=== PATIENT | male | born 1970 | race Caucasian/White ===

== ENCOUNTER 2022-04-12 12:47 | Emergency (ER) | payer OTHER, SELFPAY ==
[~2022-04-12] VITALS: Ht 180.3 cm; Wt 81.2 kg
[~2022-04-12 12:47] MED LIST: FENT25DI33 TOP; NICO21PAT TD; PERCOCET PO
[2022-04-12 15:42] VITALS: BP 135/85
[2022-04-12] MEDS ORDERED: AMOX875T2 PO (15:49)
[2022-04-12 16:30] LABS: RSV AMPLIFICATION NEGATIVE (NEGATIVE)
== END 2022-04-12 16:54 | disposition home or self-care (01) ==
LOC: M ED 12:47
DX: J01.90 Acute sinusitis, unspecified (principal); J90 Pleural effusion, not elsewhere classified; F17.200 Nicotine dependence, unspecified, uncomplicated; Z88.1 Allergy status to other antibiotic agents

== ENCOUNTER → 2022-06-12 | Outpatient (CLI) | payer MEDICAID ==
[~2022-06-12] MED LIST changes: +AMOX875T2 PO
== END ==
LOC: M RAD 11:03
PROVIDERS: ATTEND Nurse Practitioner Family
DX: J90 Pleural effusion, not elsewhere classified (principal)

== ENCOUNTER → 2022-06-25 | Outpatient (CLI) | payer OTHER ==
[~2022-06-25] MED LIST changes: +ISOVUE-370 76% 100ML VIAL As Ordered ONE
== END ==
LOC: M RAD 10:41
PROVIDERS: ATTEND Nurse Practitioner Family
DX: J90 Pleural effusion, not elsewhere classified (principal)
CPT/HCPCS: 71260; Q9967

== ENCOUNTER 2022-06-27 18:13 | Emergency (ER) | payer OTHER ==
[~2022-06-27] VITALS: Ht 180.3 cm; Wt 82.6 kg
[~2022-06-27 18:13] MED LIST changes: -ISOVUE-370 76% 100ML VIAL As Ordered ONE
[2022-06-27] MEDS ORDERED: ASPIRIN 81 MG CHEW TABLET PO ONE (19:45)
[2022-06-27 19:59] LABS: BASO # 0.1 10^3/uL (0.0-0.2); BASO % 1.3 % (0.0-1.0); EOS # 0.5 10^3/uL (0.0-0.5); EOS % 5.3 % (0.0-3.0); HEMOGLOBIN 15.3 g/dl (13.5-17.5); LYMPH # 2.9 10^3/uL (1.5-5.0); LYMPH % 28.4 % (24.0-44.0); MEAN CORPUSCULAR HEMOGLOBIN 30.1 pg (27.0-33.0); MEAN CORPUSCULAR HGB CONC 32.6 g/dl (32.0-36.5); MEAN CORPUSCULAR VOLUME 92.5 fl (80.0-96.0); MONO # 1.1 10^3/uL (0.0-0.8); NEUTROPHILS # 5.5 10^3/uL (1.5-8.5); NEUTROPHILS % 53.6 % (36.0-66.0); PLATELET COUNT, AUTOMATED 216 10^3/uL (150-450); RED BLOOD COUNT 5.08 10^6/uL (4.30-6.10); WHITE BLOOD COUNT 10.3 10^3/uL (4.0-10.0)
[2022-06-27 20:47] LABS: CK-MB VALUE MASS < 1.0 NG/ML (<3.6); CPK CREATINE PHOSPHOKINASE 82 U/L (39-308); MB/CK RELATIVE INDEX 1.22 (< OR =4)
[2022-06-27 20:51] LABS: ALBUMIN 3.9 GM/DL (3.2-5.2); ALT/SGPT 24 U/L (12-78); BILIRUBIN,DIRECT 0.1 MG/DL (0.0-0.2); BILIRUBIN,TOTAL 0.4 MG/DL (0.2-1.0); BLOOD UREA NITROGEN 12 MG/DL (7-18); CARBON DIOXIDE LEVEL 30 MEQ/L (21-32); CHLORIDE LEVEL 102 MEQ/L (98-107); CREATININE FOR GFR 1.04 MG/DL (0.70-1.30); GLOMERULAR FILTRATION RATE > 60.0 (>56); GLUCOSE, FASTING 81 MG/DL (70-100); LIPASE 194 U/L (73-393); NT-PRO BNP 27 PG/ML (<125); SODIUM LEVEL 138 MEQ/L (136-145); TOTAL PROTEIN 7.4 GM/DL (6.4-8.2)
[2022-06-27 22:15] VITALS: BP 114/66
== END 2022-06-27 22:27 | disposition home or self-care (01) ==
LOC: M ED 18:13
DX: R07.9 Chest pain, unspecified (principal); S22.32XD Fracture of one rib, left side, subsequent encounter for fracture with routine healing; F17.200 Nicotine dependence, unspecified, uncomplicated; Z88.1 Allergy status to other antibiotic agents

== ENCOUNTER → 2022-07-30 | Outpatient (CLI) | payer OTHER | LOC: M CARPUL 13:47 | PROVIDERS: ATTEND Internal Medicine Pulmonary Disease | DX: J44.9 Chronic obstructive pulmonary disease, unspecified (principal) ==

== ENCOUNTER → 2022-10-28 | Outpatient (REF) | payer OTHER ==
[2022-10-28 13:47] LABS: CHOLESTEROL RISK RATIO 3.55 (<5); HDL CHOLESTEROL 48.6 MG/DL (>40); LDL CHOLESTEROL 100.6 MG/DL (<100)
== END ==
LOC: M LAB REF 12:45
PROVIDERS: ATTEND Nurse Practitioner Family
DX: R79.89 Other specified abnormal findings of blood chemistry (principal)

== ENCOUNTER 2023-01-10 19:37 | Emergency (ER) | payer OTHER ==
[2023-01-10 20:16] LABS: BASO # 0.1 10^3/uL (0.0-0.2); BASO % 0.5 % (0.0-1.0); EOS % 0.3 % (0.0-3.0); HEMATOCRIT 48.7 % (42.0-52.0); LYMPH # 0.9 10^3/uL (1.5-5.0); LYMPH % 6.5 % (24.0-44.0); MEAN CORPUSCULAR HEMOGLOBIN 30.4 pg (27.0-33.0); MEAN CORPUSCULAR HGB CONC 32.9 g/dl (32.0-36.5); MEAN CORPUSCULAR VOLUME 92.4 fl (80.0-96.0); MONO # 1.1 10^3/uL (0.0-0.8); MONO % 7.9 % (2.0-8.0); NEUTROPHILS % 84.3 % (36.0-66.0); PLATELET COUNT, AUTOMATED 215 10^3/uL (150-450); RED BLOOD COUNT 5.27 10^6/uL (4.30-6.10); WHITE BLOOD COUNT 14.3 10^3/uL (4.0-10.0)
[2023-01-10] MEDS ORDERED: methylPREDNISolone 125MG 2ML VIAL IV ONE (20:25)
[2023-01-10] MEDS ORDERED: ACETAMINOPHEN 325 MG TAB PO ONE (20:25)
[2023-01-10] MEDS ORDERED: ONDANSETRON 4MG 2ML VIAL As Ordered ONE (20:32)
[2023-01-10] MEDS ORDERED: ONDANSETRON 4MG 2ML VIAL IV ONE (20:35)
[2023-01-10 20:39] LABS: CK-MB VALUE MASS < 1.0 NG/ML (<3.6)
[2023-01-10 20:40] LABS: ALKALINE PHOSPHATASE 79 U/L (46-116); ALT/SGPT 22 U/L (7.0-40); AST/SGOT 27 U/L (<34); BILIRUBIN,DIRECT 0.2 MG/DL (<0.4); BILIRUBIN,TOTAL 0.5 MG/DL (0.3-1.2); BLOOD UREA NITROGEN 9 MG/DL (9-23); CALCIUM LEVEL 8.5 MG/DL (8.5-10.1); CARBON DIOXIDE LEVEL 28 MMOL/L (20-31); CHLORIDE LEVEL 101 MMOL/L (98-107); CREATININE FOR GFR 1.07 MG/DL (0.70-1.30); GLOMERULAR FILTRATION RATE > 60.0 (>56); GLUCOSE, FASTING 119 MG/DL (60-100); POTASSIUM SERUM 3.7 MMOL/L (3.5-5.1); SODIUM LEVEL 137 MMOL/L (136-145)
[2023-01-10 20:43] LABS: CPK CREATINE PHOSPHOKINASE 95 U/L (46-171); MB/CK RELATIVE INDEX 1.05 (< OR =4)
[2023-01-10 20:51] LABS: RSV AMPLIFICATION NEGATIVE (NEGATIVE)
[2023-01-10] MEDS ORDERED: ISOVUE-370 76% 100ML VIAL As Ordered ONE (21:04)
[2023-01-10] MEDS ORDERED: cefTRIAXone SOD 1 GM in D5W MINI-BAG PLUS 50 ML IV ONE (22:10)
[2023-01-10] MEDS ORDERED: AZITHROMYCIN 250MG TABLET PO ONE (22:10)
[2023-01-10 22:26] VITALS: O2SAT 96
[2023-01-10 23:30] VITALS: BP 162/80
[2023-01-10] MEDS ORDERED: PRED10TA2 PO (23:34)
[2023-01-10] MEDS ORDERED: ZITHTAB PO (23:34)
[2023-01-10] MEDS ORDERED: CEFD300C PO (23:34)
== END 2023-01-10 23:48 | disposition home or self-care (01) ==
LOC: M ED 19:37 → EDBD 19:37 → M ED 23:48
DX: J44.1 Chronic obstructive pulmonary disease with (acute) exacerbation (principal); J18.9 Pneumonia, unspecified organism; F12.10 Cannabis abuse, uncomplicated; Z88.8 Allergy status to other drugs, medicaments and biological substances
CPT/HCPCS: 71045; 71275; 80048; 80076; 82550; 82553; 83605; 85025; 85379; 87040; 87631; 93005; 93041; 94760; 96365; 96375; 99285; J0696; J2405; J2930

== ENCOUNTER → 2023-02-12 | Outpatient (REF) | payer OTHER ==
[~2023-02-12] MED LIST changes: +CEFD300C PO; +PRED10TA2 PO; +ZITHTAB PO
[2023-02-12 17:18] LABS: CHOLESTEROL RISK RATIO 3.55 (<5); HDL CHOLESTEROL 51.2 MG/DL (>40); LDL CHOLESTEROL 91.8 MG/DL (<100); NON-HDL-C 130.8 MG/DL
== END ==
LOC: M LAB REF 16:16
PROVIDERS: ATTEND Nurse Practitioner Family
DX: R79.89 Other specified abnormal findings of blood chemistry (principal)

== ENCOUNTER → 2023-09-30 | Outpatient (REF) | payer OTHER ==
[2023-09-30 12:22] LABS: ALBUMIN 3.7 G/DL (3.2-5.2); ALKALINE PHOSPHATASE 69 U/L (46-116); ALT/SGPT 17 U/L (7.0-40); AST/SGOT 19 U/L (<34); BILIRUBIN,TOTAL 0.4 MG/DL (0.3-1.2); BLOOD UREA NITROGEN 16 MG/DL (9-23); CALCIUM LEVEL 8.7 MG/DL (8.5-10.1); CARBON DIOXIDE LEVEL 27 MMOL/L (20-31); CHLORIDE LEVEL 104 MMOL/L (98-107); CHOLESTEROL LEVEL 211 MG/DL (<200); CHOLESTEROL RISK RATIO 3.78 (<5); CREATININE FOR GFR 1.02 MG/DL (0.70-1.30); GLOMERULAR FILTRATION RATE > 60.0 (>56); GLUCOSE, FASTING 99 MG/DL (60-100); HDL CHOLESTEROL 55.8 MG/DL (>40); LDL CHOLESTEROL 125.2 MG/DL (<100); MAGNESIUM LEVEL 1.8 MG/DL (1.8-2.4); NON-HDL-C 155.2 MG/DL; POTASSIUM SERUM 4.3 MMOL/L (3.5-5.1); SODIUM LEVEL 139 MMOL/L (136-145); TOTAL 25(OH) VITAMIN D 60.5 NG/ML (20.0-100.0); TOTAL PROTEIN 6.7 G/DL (5.7-8.2); TRIGLYCERIDES LEVEL 150 MG/DL (<150)
[2023-09-30 12:24] LABS: BASO # 0.1 10^3/uL (0.0-0.2); EOS # 0.5 10^3/uL (0.0-0.5); EOS % 5.4 % (0.0-3.0); HEMATOCRIT 47.3 % (42.0-52.0); HEMOGLOBIN 15.5 g/dl (13.5-17.5); LYMPH % 23.6 % (24.0-44.0); MEAN CORPUSCULAR HGB CONC 32.8 g/dl (32.0-36.5); MEAN CORPUSCULAR VOLUME 91.7 fl (80.0-96.0); MONO # 0.7 10^3/uL (0.0-0.8); MONO % 8.3 % (2.0-8.0); NEUTROPHILS # 5.1 10^3/uL (1.5-8.5); NEUTROPHILS % 61.3 % (36.0-66.0); PLATELET COUNT, AUTOMATED 230 10^3/uL (150-450); RED BLOOD COUNT 5.16 10^6/uL (4.30-6.10); WHITE BLOOD COUNT 8.3 10^3/uL (4.0-10.0)
[2023-09-30 12:46] LABS: HEMOGLOBIN A1c 5.1 % (4.0-6.0)
[2023-10-01 16:09] LABS: TESTOSTERONE FREE (DIRECT) 9.2 pg/mL (7.2-24.0)
== END ==
LOC: M LAB REF 11:23
PROVIDERS: ATTEND Nurse Practitioner Family
DX: Z13.228 Encounter for screening for other metabolic disorders (principal); R68.82 Decreased libido

== ENCOUNTER → 2024-01-09 | Outpatient (CLI) | payer OTHER | LOC: M RAD 14:17 | PROVIDERS: ATTEND Internal Medicine Pulmonary Disease | DX: Z87.891 Personal history of nicotine dependence (principal) ==

== ENCOUNTER → 2024-06-24 | Outpatient (REF) | payer OTHER ==
[2024-06-24 13:32] LABS: CHOLESTEROL RISK RATIO 2.95 (<5); HDL CHOLESTEROL 55.5 MG/DL (>40); LDL CHOLESTEROL 77.7 MG/DL (<100); NON-HDL-C 108.5 MG/DL
== END ==
LOC: M LAB REF 13:10
PROVIDERS: ATTEND Nurse Practitioner Family
DX: R79.89 Other specified abnormal findings of blood chemistry (principal)

== ENCOUNTER → 2024-08-12 | Outpatient (REF) | payer OTHER | LOC: M LAB REF 17:42 | PROVIDERS: ATTEND Surgery | DX: D04.71 Carcinoma in situ of skin of right lower limb, including hip (principal) ==

== ENCOUNTER 2024-09-15 11:20 | Emergency (ER) | payer OTHER ==
[~2024-09-15] VITALS: Ht 180.3 cm; Wt 83.1 kg
[2024-09-15] MEDS ORDERED: INCR1INH (11:41)
[2024-09-15] MEDS ORDERED: FLUT1INH3 (11:41)
[2024-09-15] MEDS ORDERED: ATOR1TAB19 (11:41)
[2024-09-15] MEDS ORDERED: PANT40TA29 (11:41)
[2024-09-15] MEDS ORDERED: ALBU8.5H (11:41)
[2024-09-15] MEDS ORDERED: LOSA25TA13 (11:41)
[2024-09-15] MEDS: FAMOTIDINE 20MG/2ML VIAL IVP ONE (11:55)
[2024-09-15] MEDS: methylPREDNISolone 125MG 2ML VIAL IV ONE (11:55)
[2024-09-15] MEDS ORDERED: EPIP0.3I2 IM (13:29)
[2024-09-15 13:45] VITALS: BP 143/92; TEMP 97.4; O2SAT 97
== END 2024-09-15 13:59 | disposition home or self-care (01) ==
LOC: M ED 11:20 → EDBD 11:20 → M ED 13:59
DX: T63.441A Toxic effect of venom of bees, accidental (unintentional), initial encounter (principal); J44.9 Chronic obstructive pulmonary disease, unspecified; F17.200 Nicotine dependence, unspecified, uncomplicated; F12.10 Cannabis abuse, uncomplicated; F10.10 Alcohol abuse, uncomplicated; Z91.030 Bee allergy status; Z88.8 Allergy status to other drugs, medicaments and biological substances; Z79.52 Long term (current) use of systemic steroids; Z79.02 Long term (current) use of antithrombotics/antiplatelets; Z79.899 Other long term (current) drug therapy
CPT/HCPCS: 96374; 99284; J2919; S0028

== ENCOUNTER → 2025-02-17 | Outpatient (CLI) | payer OTHER ==
[~2025-02-17] MED LIST changes: +ALBU8.5H; +ATOR1TAB19; +EPIP0.3I2 IM; +FLUT1INH3; +INCR1INH; +LOSA25TA13; +PANT40TA29
== END ==
LOC: M RAD 08:49
PROVIDERS: ATTEND Internal Medicine Pulmonary Disease
DX: Z87.891 Personal history of nicotine dependence (principal)

== ENCOUNTER 2025-06-08 19:31 | Emergency (ER) | payer OTHER ==
[~2025-06-08] VITALS: Ht 180.3 cm; Wt 82.8 kg
[~2025-06-08 19:31] MED LIST changes: -ALBU8.5H; +ALBU8.5H INH; +AMLO1TAB25 PO; -ATOR1TAB19; +ATOR1TAB19 PO; +DICL1PAT6 TOP; -FLUT1INH3; +FLUT1INH3 INH; -INCR1INH; +INCR1INH INH; +LOSA50TA28 PO; -PANT40TA29; +PANT40TA29 PO
[2025-06-08 19:38] VITALS: BP 143/89; TEMP 98; O2SAT 98
== END 2025-06-08 21:19 | disposition left against medical advice (07) ==
LOC: M ED 19:31
DX: Z53.21 Procedure and treatment not carried out due to patient leaving prior to being seen by health care provider (principal)

== ENCOUNTER → 2025-06-22 | Outpatient (REF) | payer OTHER ==
[2025-06-22 14:43] LABS: ALT/SGPT 45 U/L (7.0-40); AST/SGOT 36 U/L (<34); CALCIUM LEVEL 9.0 MG/DL (8.5-10.1); CARBON DIOXIDE LEVEL 22 MMOL/L (20-31); CHLORIDE LEVEL 104 MMOL/L (98-107); CHOLESTEROL LEVEL 141 MG/DL (<200); CHOLESTEROL RISK RATIO 2.31 (<5); CREATININE FOR GFR 0.92 MG/DL (0.70-1.30); GLOMERULAR FILTRATION RATE > 90.0 (>56); LDL CHOLESTEROL 59.7 MG/DL (<100); NON-HDL-C 80.1 MG/DL; POTASSIUM SERUM 3.6 MMOL/L (3.5-5.1); SODIUM LEVEL 142 MMOL/L (136-145); TRIGLYCERIDES LEVEL 102 MG/DL (<150)
[2025-06-22 14:45] LABS: VITAMIN B12 LEVEL 305 PG/ML (211-911)
[2025-06-22 15:03] LABS: ESTIMATED AVERAGE GLUCOSE 111.0 MG/DL (60-110)
== END ==
LOC: M LAB REF 13:46
PROVIDERS: ATTEND Student in an Organized Health Care Education/Training Program
DX: R79.89 Other specified abnormal findings of blood chemistry (principal); R20.0 Anesthesia of skin; Z68.26 Body mass index [BMI] 26.0-26.9, adult; I10 Essential (primary) hypertension

== ENCOUNTER 2025-09-23 18:32 | Emergency (ER) | payer OTHER ==
[~2025-09-23] VITALS: Ht 180.3 cm; Wt 86.9 kg
[2025-09-23 18:37] VITALS: BP 105/61; TEMP 97; O2SAT 96
== END 2025-09-23 20:42 | disposition left against medical advice (07) ==
LOC: M ED 18:32
DX: Z53.21 Procedure and treatment not carried out due to patient leaving prior to being seen by health care provider (principal)